=== PATIENT | male | born 1995 | race Caucasian/White ===

== ENCOUNTER → 2019-12-03 09:11 | Outpatient (BNVA) | payer OTHER, SELFPAY | PROVIDERS: Visit Provider Internal Medicine | DX: Z11.59 Encounter for screening for other viral diseases (principal); J06.9 Acute upper respiratory infection, unspecified | CPT/HCPCS: 87635 ==

== ENCOUNTER → 2020-09-28 13:37 | Outpatient (BNVA) | payer OTHER, SELFPAY | PROVIDERS: Visit Provider Nurse Practitioner | DX: S99.921A Unspecified injury of right foot, initial encounter (principal); S99.929A Unspecified injury of unspecified foot, initial encounter; X58.XXXA Exposure to other specified factors, initial encounter | CPT/HCPCS: 73610 ==

== ENCOUNTER 2023-08-11 20:18 | Emergency (ER) | payer SELFPAY ==
[2023-08-11 20:26] VITALS: BP 142/89; PULSE 70; RESP 16; O2SAT 98
[2023-08-11 20:27] VITALS: BP 142/89; PULSE 88; O2SAT 99
--- NOTE | 2023-08-11 20:29 | XRR_ITS ---
PROCEDURE INFORMATION: Exam: XR Lumbosacral Spine Exam date and time: 08/11/2023 8:36 PM Age: 28 years old Clinical indication: Injury or trauma; Fall; Blunt trauma (contusions or hematomas); Additional info: Low back pain S/P fall TECHNIQUE: Imaging protocol: Radiologic exam of the lumbosacral spine. Views: 2 or 3 views. COMPARISON: CT angio abdomen pelvis [id number] 10/09/2018 1:45 AM FINDINGS: Bones/joints: No acute appearing vertebral body compression deformity. Facet alignment is preserved. Soft tissues: Unremarkable. XR/XR lumbar spine 2-3V* [id number] IMPRESSION: No evidence of acute fracture or traumatic malalignment in the lumbar spine.
[2023-08-11] MEDS: ketorolac 60 mg/2 mL INJ IM (20:43)
[2023-08-11] MEDS: orphenadrine 30 mg/mL Inj 2 mL 60 MG IM (20:43)
[2023-08-11] MEDS: dexamethasone 10 mg/mL INJ 8 MG IM (20:51)
--- NOTE | 2023-08-11 21:27 | W.ED.BACK ---
Documented by User: UMU Lane 08/11/23 22:10 HPI - Back Pain/Injury General: Chief Complaint: Back Pain/Injury Stated Complaint: Lower Back pain Time Seen by Provider: 08/11/23 20:23 Source: patient Mode of arrival: ambulatory Limitations: no limitations History of Present Illness: Patient is a 28-year-old male presenting to the emergency department complaining of low back pain onset prior to arrival. Patient notes he fell off of his semitruck and struck his low back, unknown if he directly hit it on something or was a subsequent injury in the fall, stating it happened so fast. He notes severe pain to the low back radiating down the right lower extremity. He also notes some numbness down the right lower extremity. He is denying any bowel or bladder incontinence or saddle anesthesia at this time. No prior history of back injuries or surgeries. Has not taken anything for pain prior to arrival. Pain is currently a 10/10 and he notes it is intermittently coming and sharp waves. Pain is significantly exacerbated by any movement, specifically twisting at the waist. No other injuries noted and patient states he did not hit his head or lose consciousness. MD elicited complaint: back pain, back injury and fall Pertinent past history: recent trauma Onset (ago): minute(s) Timing: constant Severity: severe Pain scale (0-10): 10 Similar Symptoms Previously: No Quality: sharp Location: lumbar spine Radiation: right upper leg Exacerbating factors: movement Relieving factors: none Context: fall Associated symptoms: Deny abdominal pain, chills, dysuria, fatigue, fever(s), nausea or vomiting Work related injury: No Review of Systems General: Reports: 10 or more systems reviewed and unremarkable except in HPI and below Const: Reports: other (fall); Denies: fever(s), chills or fatigue Eyes: Denies: change in vision ENMT: Denies: throat pain, ear or mastoid pain or nasal discharge Card: Denies: chest pain, palpitations, swelling of feet/ankles or lightheadedness Resp: Denies: dyspnea, productive cough or wheezing GI: Denies: abdominal pain, nausea, vomiting, diarrhea or constipation : Denies: flank pain, difficulty urinating, dysuria or urinary frequency Musc: Reports: back pain and extremity pain (RLE); Denies: neck pain or joint pain Skin/Breast: Denies: rash Neuro: Reports: numbness in extremities (RLE); Denies: headache(s) or weakness in extremities PFSH ED PFSH: Social History Smoking and tobacco/nicotine status: former use of tobacco/nicotine Physical Exam Const: COMMON NORMALS: average body habitus, patient oriented x3, no limitations, healthy appearing and alert GENERAL APPEARANCE: cooperative and in distress (from pain) HENMT: COMMON NORMALS: normocephalic and atraumatic HEAD & SCALP: normocephalic and atraumatic Eye: COMMON NORMALS: Equal, round and reactive pupils present and EOMs intact bilaterally PUPIL: Yes Equal, round and reactive pupils present Neck/C-Spine: COMMON NORMALS: full ROM and supple Chest: COMMONS NORMALS: normal inspection of the chest and normal palpation of entire chest wall Resp: COMMON NORMALS: normal respiratory effort, No retractions, No use of accessory muscles and clear to auscultation bilaterally AUSCULTATION: clear to auscultation bilaterally Cardio: COMMON NORMALS: regular rate, regular rhythm, No gallops present (Cardio), No clicks present (Cardio) and No murmurs present (Cardio) RATE: regular rate RHYTHM: regular rhythm GI: COMMON NORMALS: Soft to palpation and non-tender PALPATION: Yes Soft to palpation : COMMON NORMALS: Yes no CVA tenderness BLADDER/KIDNEY EXAM: Yes no CVA tenderness Back/Pelvis: COMMON NORMALS: no CVA tenderness and thoracic and lumbar spine normal to inspection THORACIC SPINE/UPPER BACK: Yes normal to inspection LUMBAR SPINE/LOWER BACK: Yes ROM limited, Yes pain with ROM, Yes lumbar spinal tenderness, No paraspinal muscle tenderness and Yes straight leg raise positive right Straight leg raise positive details right: at 30 degrees Extremity: COMMON NORMALS: normal to inspection and full ROM Neuro: COMMON NORMALS: patient oriented x3, moves all extremities, no focal motor deficits, no sensory deficits noted and deep tendon reflexes 2+ bilaterally SENSORIUM/ORIENTATION: Yes alert Psych: COMMON NORMALS: mental status grossly normal Skin: COMMON NORMALS: no rashes or lesions noted GENERAL SKIN EXAM: no rashes or lesions noted Course Vital Signs: Vital signs: Vital Signs Pulse Rate 75 08/11/23 22:24 Respiratory Rate 16 08/11/23 22:24 Blood Pressure 157/84 08/11/23 22:24 Pulse Oximetry 98 08/11/23 22:24 Oxygen Delivery Me thod Room Air 08/11/23 20:26 MDM - Back Pain/Injury Medical Decision Making Patient was seen for a back injury suffered prior to arrival. On arrival he was in a significant mount of pain and could not move due to the pain. Vitals however were normal and other than some limited range of motion and pain with range of motion, his exam was unremarkable. He did have a positive straight leg raise on the right. X-ray was obtained and did not demonstrate any signs of fracture or other traumatic signs. He was given shot of Norflex, Toradol, and Decadron and rechecked and states his pain is only minimally better. I will give him a [place] prior to discharge, and sent home with prescriptions for steroid, muscle relaxer, and p.o. Toradol. Informed him that if his condition does not improve he needs to follow-up with primary care and potentially orthopedics for further imaging. He has no red flag back symptoms to warrant CT scan at this time. Will attempt treating conservatively and informed him to do gentle range of motion exercises as tolerated. All other questions and concerns are addressed at this time. Labs Radiology Impressions Lumbar Spine X-Ray 08/11/23 20:29 IMPRESSION: No evidence of acute fracture or traumatic malalignment in the lumbar spine. All radiology interpretation(s) finalized by discharge Discharge Plan Discharge Patient Disposition: Home Clinical Impression: Strain of lumbar region Qualifiers: Encounter type: initial encounter Qualified Code(s): S39.012A - Strain of muscle, fascia and tendon of lower back, initial encounter Condition: Stable Prescriptions: New cyclobenzaprine 10 mg tablet 10 mg PO TID Qty: 15 0RF prednisone 20 mg tablet 60 mg PO ONCE 5 Days Qty: 15 0RF ketorolac 10 mg tablet 10 mg PO Q8H PRN (Reason: pain) Qty: 15 0RF Discharge Orders: Discharge ED (Routine); Ordered 08/11/23 Ordered By: Christian Kovacs Discharge Diet: Usual diet Discharge Activity: Increase activity as tolerated Patient Instructions: Low Back Strain (ED), Lower Back Exercises (ED) Activity Restrictions/Additional Instructions: Medications as prescribed. Gentle range of motion exercises as tolerated. Avoid reinjury. Follow-up with primary care. Return for reevaluation with any new or worsening symptoms. Coding Level of Care Code ED Central Office Repairer for [facility] F[employer] Documented by User: Joce Finnegan DO 08/12/23 14:57 HPI - Back Pain/Injury General: Chief Complaint: Back Pain/Injury Stated Complaint: Lower Back pain Time Seen by Provider: 08/11/23 20:23 PFSH ED PFSH: Social History Smoking and tobacco/nicotine status: former use of tobacco/nicotine Course Vital Signs: Vital signs: Vital Signs Pulse Rate 75 08/11/23 22:24 Respiratory Rate 16 08/11/23 22:24 Blood Pressure 157/84 08/11/23 22:24 Pulse Oximetry 98 08/11/23 22:24 Oxygen Delivery Me thod Room Air 08/11/23 20:26 MDM - Back Pain/Injury Medical Decision Making Patient was seen for a back injury suffered prior to arrival. On arrival he was in a significant mount of pain and could not move due to the pain. Vitals however were normal and other than some limited range of motion and pain with range of motion, his exam was unremarkable. He did have a positive straight leg raise on the right. X-ray was obtained and did not demonstrate any signs of fracture or other traumatic signs. He was given shot of Norflex, Toradol, and Decadron and rechecked and states his pain is only minimally better. I will give him a [place] prior to discharge, and sent home with prescriptions for steroid, muscle relaxer, and p.o. Toradol. Informed him that if his condition does not improve he needs to follow-up with primary care and potentially orthopedics for further imaging. He has no red flag back symptoms to warrant CT scan at this time. Will attempt treating conservatively and informed him to do gentle range of motion exercises as tolerated. All other questions and concerns are addressed at this time. Chart reviewed Labs Radiology Impressions Lumbar Spine X-Ray 08/11/23 20:29 IMPRESSION: No evidence of acute fracture or traumatic malalignment in the lumbar spine. Discharge Plan Discharge Patient Disposition: Home Clinical Impression: Strain of lumbar region Qualifiers: Encounter type: initial encounter Qualified Code(s): S39.012A - Strain of muscle, fascia and tendon of lower back, initial encounter Condition: Stable Prescriptions: New cyclobenzaprine 10 mg tablet 10 mg PO TID Qty: 15 0RF prednisone 20 mg tablet 60 mg PO ONCE 5 Days Qty: 15 0RF ketorolac 10 mg tablet 10 mg PO Q8H PRN (Reason: pain) Qty: 15 0RF Discharge Orders: Discharge ED (Routine); Ordered 08/11/23 Ordered By: Christian Kovacs Discharge Diet: Usual diet Discharge Activity: Increase activity as tolerated Patient Instructions: Low Back Strain (ED), Lower Back Exercises (ED) Activity Restrictions/Additional Instructions: Medications as prescribed. Gentle range of motion exercises as tolerated. Avoid reinjury. Follow-up with primary care. Return for reevaluation with any new or worsening symptoms. Coding Level of Care Code ED Central Office Repairer for [facility]ini Baez
[2023-08-11 22:24] VITALS: BP 157/84; PULSE 75; RESP 16; O2SAT 98
[2023-08-11] MEDS: HYDROcodone-acetaminophen 7.5-325 mg Tablet 1 TAB PO (22:24)
== END 2023-08-11 22:34 | disposition home or self-care (01) ==
PROVIDERS: Emergency Provider Physician Assistant
DX: S39.012A Strain of muscle, fascia and tendon of lower back, initial encounter (principal); Z87.891 Personal history of nicotine dependence; W17.89XA Other fall from one level to another, initial encounter
CPT/HCPCS: 72100; 96372; 99284; J1100; J1885; J2360